=== PATIENT | female | born 1950 | race Two or more races ===

== ENCOUNTER 2022-10-21 08:40 | Outpatient (CLI) | payer OTHER ==
[~2022-10-21 08:40] MED LIST: DOLOGESIC CAPLE1 TAB PO; DURICEF500 MG; EVISTA60 MG; MEDROL4 MG PO; NORVASC5 MG; VALISONE15 GM TP
== END 2022-10-21 08:48 | disposition home or self-care (01) ==
LOC: SONOGRAMA 08:40
PROVIDERS: ATTEND Pathology Anatomic Pathology & Clinical Pathology
DX: E04.1 Nontoxic single thyroid nodule (principal)